=== PATIENT | male | born 1990 | race Caucasian/White ===

== ENCOUNTER 2025-06-03 12:05 | Emergency (ER) | payer OTHER, SELFPAY ==
[2025-06-03 12:11] VITALS: BP 143/90
[2025-06-03 12:55] VITALS: BMI 24.0
--- NOTE | 2025-06-03 13:22 | EDRN ---
Mesha Huerta PA in room w/ pt at this time.
--- NOTE | 2025-06-03 13:26 | ED.GENMED ---
History of Present Illness
General
Chief Complaint: Musculo-Skeletal Complaint
Source: patient
Time Seen by Provider: 06/03/25 13:10
History of Present Illness
History of Present Illness:
34-year-old male with past medical history of GERD presenting to the emergency department for evaluation after he was attempting to put 2 pipes together when he felt a tearing sensation in his left upper arm area, has since developed some ecchymosis
within the biceps region and discomfort at rest. Patient states he is still able to range of motion the entire left upper extremity with minimal discomfort. No other injuries were sustained. He did not take anything for pain prior to arrival.
Past History
Past History
ED Past Medical History: GERD and Other (MRSA bacteremia)
ED Past Surgical History: None
Social History
Tobacco: Smoker
Alcohol: Occasional
Drug: None
Personal: Single
Living: with family
Employment: Employed
Family History
Family History: Negative Diabetes
Review of Systems
Review of Systems
All Other Systems: ROS reviewed and negative except as documented in HPI and ROS
Phy Exam
Physical Exam
Physical Exam:
GENERAL: Alert , in no apparent distress
EYE: conjunctiva clear
Head: Normocephalic atraumatic
NECK: Supple,
ENT: mmm.
LUNGS: no acute respiratory distress
NEUROLOGICAL: Alert and oriented
SKIN: Warm and dry, skin intact.
MUSCULOSKELETAL: well perfused. Ecchymosis overlying the left bicep. Patient has full range of motion of the digits, wrist, elbow, shoulder without any pain or limited range of motion. Some mild tenderness and soft tissue swelling of the left
bicep on palpation. Extremities otherwise warm and well-perfused
PSYCH: Normal and appropriate interaction.
Scores
Heart Failure Risk
Heart Failure Risk Score: Not Applicable
Heart Score for Chest Pain Patients
STEMI patient?: Not applicable
Withdrawal Assessment of Alcohol
Withdrawal Assessment Completed?: Not applicable
Course
Orders/Labs/Results
Orders:
Orders
06/03/25 12:06
Shoulder, Left, Trauma CR [CR Shoulder, Trauma - Left] Urgent
Comment:
Reason For Exam: pain
Vital Signs
Initial and Last Documented VS:
Initial Vital Signs
Temp Pulse Resp BP Pulse Ox
97.7 F 75 18 143/90 100
06/03/25 12:11 06/03/25 12:11 06/03/25 12:11 06/03/25 12:11 06/03/25 12:11
Last Documented Vital Signs
Temp Pulse Resp BP Pulse Ox
97.7 F 75 18 143/90 100
06/03/25 12:11 06/03/25 12:11 06/03/25 12:11 06/03/25 12:11 06/03/25 13:27
MDM/Problems Addressed
Differential Diagnosis Includes:
Muscle strain
Tendon rupture
Based off mechanism I have less concern for fracture or dislocation
MDM/Problems Addressed:
34-year-old male presenting to the ER for evaluation of left upper arm pain and tearing sensation while attempting to place 2 pipes together. Patient has obvious ecchymosis along the left biceps. X-ray ordered shows no fracture or dislocation.
Suspect strain/tear to the muscle as the most likely diagnosis. Will refer to Ortho. Patient has a sling he can use at home as needed. Encouraged NSAIDs/Tylenol as needed for pain. Stable for discharge home.
*Radiology
Radiology exam reviewed: preliminary read by ED provider (no fracture or dislocation)
*Pulse Oximetry
SaO2: 100
Oxygen Mode of Delivery: Room air
Patient hypoxic: no
*Critical Care Note
Total Time (30-74mins, 75-104mins- exclusive of procedures): Not Applicable
ED Attending Note
-
Portions of this chart may have been created with voice recognition software.� Occasional wrong word or��sound alike� substitutions may have occurred due to the inherent limitations of voice recognition software.
Discharge Plan
Departure
Patient Disposition: Home (Routine Discharge)
Date of Disposition: 06/03/25
Time of Disposition: 13:26
Patient with high blood pressure during this ER visit?: Yes
Discharge Problem:
Biceps muscle strain
Instructions: Muscle Strain (DC)
Prescriptions:
No Action
oxycodone-acetaminophen 5 MG/325 MG tablet
1 tab PO Q4HPRN PRN (Reason: pain) Qty: 20 0RF
hydrocodone-acetaminophen [Vicodin] 1 EACH tablet
1 ea PO Q6HPRN PRN (Reason: pain) Qty: 10 0RF
Referrals:
Santo Quiroz MD [Family Provider, Family Practice]
Karri Archibald MD [Active, Orthopedics]
Interventions
Interventions:
*Risk Screen - Suicide Last Done: 06/03/25 12:55
*General Assessment Last Done: 06/03/25 12:55
*Neglect/Abuse Screening Last Done: 06/03/25 12:55
*ED- Fall Risk Assessment Last Done: 06/03/25 12:55
*ED COVID-19 Vaccine History Last Done: 06/03/25 12:55
*ED Influenza Vaccine History Last Done: 06/03/25 12:55
*Nursing Disposition Last Done: 06/03/25 13:38
ED-Musculoskeletal Assessment Last Done: 06/03/25 12:55
Discharge Date and Time
Discharge Date/Time: 06/03/25 13:39
Print Language: CONGOLESE
== END 2025-06-03 13:39 | disposition home or self-care (01) ==
LOC: EMR 12:05
PROVIDERS: EMERGENCY PHYSICIAN Emergency Medicine; FAMILY PHYSICIAN Family Medicine
DX: S46.212A Strain of muscle, fascia and tendon of other parts of biceps, left arm, initial encounter (principal); S40.022A Contusion of left upper arm, initial encounter; X58.XXXA Exposure to other specified factors, initial encounter; Y93.89 Activity, other specified; K21.9 Gastro-esophageal reflux disease without esophagitis; F17.200 Nicotine dependence, unspecified, uncomplicated; Z86.14 Personal history of Methicillin resistant Staphylococcus aureus infection
CPT/HCPCS: 99283; 73030